=== PATIENT | male | born 1995 | race African-American/Black ===

== ENCOUNTER 2020-09-08 12:49 | Emergency (ER) | payer OTHER ==
[~2020-09-08] VITALS: Ht 180.3 cm; Wt 105.2 kg
[2020-09-08 14:53] VITALS: BP 143/79
[2020-09-08] MEDS ORDERED: CYCLOBENZAPRINE5 MG PO (15:06)
[2020-09-08] MEDS ORDERED: MOBIC15 MG PO (15:06)
[2020-09-08] MEDS ORDERED: NORCO 5-325 TA1 EAC2 PO (15:06)
== END 2020-09-08 15:28 | disposition home or self-care (01) ==
LOC: ER 12:49
DX: M54.5 Low back pain (principal); Z88.8 Allergy status to other drugs, medicaments and biological substances